=== PATIENT | female | born 1980 | race Caucasian/White ===

== ENCOUNTER → 2023-06-21 12:08 | Outpatient (CLI) | payer OTHER, SELFPAY ==
--- NOTE | 2023-06-21 12:12 | DI.US.S_ITS ---
PROCEDURE: US PELVIC COMPLETE INDICATIONS: dysmenorrhea, irregular cycles, perimenopausal TECHNIQUE: Real-time scanning was performed of the pelvic organs, with image documentation. Additional endovaginal scanning was necessary due to incomplete visualization of the adnexal and endometrial structures by transabdominal scanning. COMPARISON: None. FINDINGS: Uterus: Uterus is anteverted and normal in size at 9.6 x 7.6 x 6.6 cm. The myometrium is homogeneous. The endometrium measures 10.4 mm combined thickness. Focus of heterogeneous echogenicity is present in the mid anterior region measuring 5.5 x 5.5 x 5.3 cm. Ovaries: The right ovary measures 1.9 x 1.7 x 1.4 cm, with a calculated ovarian volume of 2.4 cc. The left ovary measures 2.9 x 2.0 x 1.6 cm, with a calculated ovarian volume of 4.9 cc. The ovaries have a normal sonographic appearance. Less than 12 follicles can be seen in each ovary. No adnexal masses are seen. Other: No pathologic free abdominal or pelvic fluid. IMPRESSION: Focus of uterine heterogeneous echogenicity suggestive of partially degenerating fibroid. We strive to produce accurate, complete, and clear reports of imaging services. To assist us in improving patient care, this report was composed using standard report templates and voice recognition software. Therefore, it may contain abnormal punctuation, insertions and/or omissions. Occasional wrong-word or sound-alike substitutions may occur. Though we review the report and make efforts to correct it, we do recommend that the report be read carefully in proper context to recognize any text inaccuracies. Dictated by: Uma Singh M.D. on 06/21/2023 at 16:29 Approved by: Uma Singh M.D. on 06/21/2023 at 16:30
== END ==
PROVIDERS: PCP Nurse Practitioner Family; Referring Provider Obstetrics & Gynecology; Visit Provider Obstetrics & Gynecology
DX: N94.6 Dysmenorrhea, unspecified (principal); N92.1 Excessive and frequent menstruation with irregular cycle; N95.1 Menopausal and female climacteric states
CPT/HCPCS: 76830; 76856

== ENCOUNTER 2023-08-05 11:01 | Day surgery (SDC) | payer OTHER, SELFPAY ==
[2023-08-04 11:56] VITALS: BMI 22.1
[2023-08-05] VITALS (19 sets, daily range): BP systolic 99–131; BP diastolic 42–78; PULSE 53–96; RESP 12–46; TEMP 36–36.9; O2SAT 96–100; BMI 22.1
--- NOTE | 2023-08-05 | PATH_ITS ---
[facility] Accession Number: [id number] No. of containers..01 Tissue . 01 Material submitted: . uterus - UTERUS, BILATERAL FALLOPIAN TUBES . 01 Diagnosis: UTERUS, BILATERAL FALLOPIAN TUBES, HYSTERECTOMY AND BILATERAL SALPINGECTOMY (PRESERVED OVARIES): Uterine weight: 227 grams. Cervix: Mild chronic cervicitis; negative for dysplasia or malignancy. Endometrium: Proliferative phase endometrium; negative for significant cytologic atypia, hyperplasia, or malignancy. 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 Bilateral fallopian tubes: Benign, without pathologic abnormalities. [facility] 08/12/2023 1639 Local . 01 Comment: Scrap Carrier sections from the leiomyoma reveals cellular-type leiomyoma without significantly increased mitotic activity, atypia or necrosis. There are focal degenerative changes and no histologic features of malignancy. Slides A3 and A7 are reviewed by Dr. Finley who agrees with the findings. . 01 Electronically signed: . Janae Disla MD, Pathologist NPI- [id number] . 01 Gross description: . Received in formalin with two identifiers and uterus, bilateral fallopian tubes, is a mostly intact uterus (227 grams, 9.9 cm from superior to inferior, 7.2 cm from medial to lateral, and 6.5 cm from anterior to posterior) with a partially detached cervix measuring 3.7 x 3.6 cm and two detached, unoriented fallopian tubes (4.5 x 0.6 cm and 3.2 x 0.8 cm) with no additional adnexa. . The ectocervix is pink-boggs, smooth, and glistening with a patulous os measuring 1.0 cm in diameter. The anterior paracervical margin is inked blue while the posterior paracervical margin is inked black. . The serosa is boggs and smooth with a large surgical defect on the right cornu revealing endometrium. The endocervical canal has boggs herringbone mucosa and measures 3.1 cm in length. The endometrial cavity has red, velvety endometrium and measures 3.6 cm from cornu to cornu and 5.2 cm in length. The endometrium averages 0.1 cm thick. The myometrium is boggs with a large, well-circumscribed, soft, cystic nodule, 4.2 x 4.1 x 3.6 cm. No additional lesions are identified. . Both tubes have boggs smooth serosa. The lumens are stellate and unremarkable. Scrap Carrier sections are submitted as follows: . A1: Anterior cervix. A2: Posterior cervix. A3: Composite anterior full thickness section with cystic nodule. A4: Posterior full thickness section. A5: Longer tube to include one-half of bisected fimbriae and cross sections. A6: [place] fallopian tube to include one-half of bisected fimbriae and cross sections ([id number]) . Additional sections of the cystic myometrial nodule are submitted in A7. ([id number]) /MRV 08/12/2023 1639 Local . 01 Pathologist provided ICD-10: D25.0, N92.1, N93.9 . 01 CPT . 051883 Specimen Comment: A courtesy copy of this report has been sent to [phone] Performed at: 01 [facility] [address] [place] [address], [place], [place] [id number] MD Armando Moralez MD Phone: [phone]
[2023-08-05] MEDS: LACTATED RINGERS 1,000 ML 42 ML IV ×2 (11:29→12:50)
[2023-08-05] MEDS: ACETAMINOPHEN 325 MG TABLET 975 MG PO (11:30)
--- NOTE | 2023-08-05 11:59 | PM.PREOP ---
Pre-operative Note COVID-19 COVID-19 status: Not tested Interval Note History & Physical reviewed/Exam performed by Physician: Yes Changes to H&P: No
[2023-08-05] MEDS: CEFAZOLIN 2 GM/100 ML PREMIX 100 ML IV (12:39)
--- NOTE | 2023-08-05 12:58 | SUR.OPER ---
Lithotomy on padded OR bed. [place]il[place] Pad Positioner under torso. Head on pillow, arms padded and tucked at sides. Legs secured in padded yellow fins stirrups.
[2023-08-05] MEDS: BUPIVACAINE 0.25% (PF) 30 ML, EPINEPHrine 0.15 MG INJ (13:03)
[2023-08-05] MEDS: HYDROMORPHONE 1 MG INJ IV ×3 (14:15→16:12)
[2023-08-05] MEDS: hydrOXYzine 50 MG/ML INJ 25 MG IM (14:26)
[2023-08-05] MEDS: HYDROCODONE/ACET 10/325 TABLET 1 TAB PO ×2 (15:33→19:45)
[2023-08-05] MEDS: LACTATED RINGERS 1,000 ML 100 ML IV ×2 (15:34→21:30)
[2023-08-05] MEDS: ACETAMINOPHEN 325 MG TABLET 650 MG PO (17:44)
[2023-08-05] MEDS: KETOROLAC 30 MG/ML VIAL IV (20:38)
[2023-08-05] MEDS: DOCUSATE 100 MG CAPSULE 200 MG PO (20:39)
[2023-08-05] MEDS: ONDANSETRON 4 MG/2 ML INJ IV (20:39)
[2023-08-06 00:24] VITALS: BP 95/46; PULSE 64; RESP 16; TEMP 36.1; O2SAT 98
[2023-08-06 01:15] VITALS: BP 98/65; PULSE 70; RESP 14; O2SAT 96
[2023-08-06] MEDS: ACETAMINOPHEN 325 MG TABLET 650 MG PO (01:34)
[2023-08-06] MEDS: ONDANSETRON 4 MG/2 ML INJ IV (01:34)
[2023-08-06] MEDS: KETOROLAC 30 MG/ML VIAL IV ×2 (02:56→08:07)
[2023-08-06 05:30] VITALS: BP 103/48; PULSE 66; RESP 16; TEMP 36.4; O2SAT 99
[2023-08-06 06:44] LABS: Add Manual Diff / Slide Review NO; Basophils Absolute Auto 0 /uL (0-100); Basophils Percent Auto 0.2 % (0-2); Eosinophils Absolute Auto 0 /uL (0-450); Eosinophils Percent Auto 0.2 % (2-4); Lymphocytes Absolute Auto 1200 /uL (1100-4500); Lymphocytes Percent Auto 16.3 % (25-40); Mean Corpuscular HGB Conc 29.4 % (30-36); Mean Corpuscular Hemoglobin 16.7 PG (26-34); Mean Corpuscular Volume 56.8 fL (80-100); Monocytes Absolute Auto 900 /uL (0-900); Monocytes Percent Auto 11.7 % (3-14); Neutrophils Absolute Auto 5400 /uL (1500-7000); Neutrophils Percent Auto 71.6 % (50-75); Platelet Count 191 X10^3/uL (150-400); Red Cell Distribution Width 18.9 % (11.6-14.8); White Blood Cell Count 7.6 X10^3/uL (4.5-11.0)
[2023-08-06 06:46] LABS: Hematocrit 20.4 % (36-46)
[2023-08-06] MEDS: HYDROMORPHONE 1 MG INJ IV (06:49)
[2023-08-06 07:04] LABS: Platelet Estimate Adequate on smear
[2023-08-06 07:05] LABS: Anisocytosis 2+; Hypochromasia 1+; Microcytosis 3+; Ovalocytes 1+
[2023-08-06 08:00] VITALS: BP 111/61; PULSE 82; RESP 16; TEMP 36.6; O2SAT 99
[2023-08-06] MEDS: DOCUSATE 100 MG CAPSULE 200 MG PO (08:06)
[2023-08-06] MEDS: IRON SUCROSE 300 MG in SODIUM CHLORIDE 0.9% 250 ML 176.667 MG IV (08:54)
[2023-08-06 10:38] LABS: Hemoglobin 6.3 g/dL (12.0-16.0)
[2023-08-06 10:40] LABS: Hematocrit 21.3 % (36-46)
--- NOTE | 2023-08-06 10:45 | PM.DS.1 ---
History of Present Illness History of Present Illness Date Patient Seen: 08/06/23 Time Patient Seen: 10:45 Chief complaint: Lap Total Hysterectomy *OPB* Narrative: Naomi is a 43-year-old , LMP uncertain due to the chaotic nature of her menses, who presents for evaluation of her chaotic menses. Patient experienced menarche at age 14 and has had regular predictable periods throughout her adult life. She conceived, carried, and delivered spontaneously 5 children the largest of which was more than 9 lb at . Since having her last child in about 2015, the patient's periods have become progressively chaotic and much more painful following an interval sterilization performed a year so after she delivered her youngest child. The cramping is severe with severe fitting, overflows, and accidents. The patient over the last few years has do evolved into having chaotic bleeding occurring several times a month with only a few days of amenorrhea in between. Patient's last Pap smear is greater than 5 years ago but she does not all ever having an abnormal. Patient has never had any endometrial sampling. 06/21/2023 which shows: FINDINGS: Uterus: Uterus is anteverted and normal in size at 9.6 x 7.6 x 6.6 cm. The myometrium is homogeneous. The endometrium measures 10.4 mm combined thickness. Focus of heterogeneous echogenicity is present in the mid anterior region measuring 5.5 x 5.5 x 5.3 cm. Ovaries: The right ovary measures 1.9 x 1.7 x 1.4 cm, with a calculated ovarian volume of 2.4 cc. The left ovary measures 2.9 x 2.0 x 1.6 cm, with a calculated ovarian volume of 4.9 cc. The ovaries have a normal sonographic appearance. Less than 12 follicles can be seen in each ovary. No adnexal masses are seen. Other: No pathologic free abdominal or pelvic fluid. IMPRESSION: Focus of uterine heterogeneous echogenicity suggestive of partially degenerating fibroid. Due to the vague nature of the myometrial abnormality noted on ultrasound, the films were reviewed and indeed she has a 5-1/2 x 5-1/2 cm mass within the substance of the myometrium is markedly heterogenous in echogenicity. A degenerating myoma is a possibility as is the possibility of an adenomyoma. ROS is positive for BRIANA. Pap smear obtained and submitted. Endometrial biopsy also performed and both reported normal. The nature of the patient's uterine mass is unclear. Although described as a possible ?degenerating myoma?, it could also be an adenomyoma or some other myometrial lesion. Either way, the pelvic exam duplicates her pain and very likely the uterine mass is playing a role not only in her pain symptoms but also her intractable menometrorrhagia. After discussion of all options for further evaluation/treatment, I have recommended to her that she consider hysterectomy with bilateral salpingectomy and preservation of both ovaries as hysterectomy is the only means of definitively resolving her menometrorrhagia and making a diagnosis as to the nature of her uterine mass. After consideration of all options, the patient has decided to move forward with total laparoscopic hysterectomy and bilateral salpingectomy. She presents for her scheduled surgery. Discharge Providers Provider Date of admission: 08/05/2023 Discharge Date: 08/06/23 Primary care physician: Tish Montague RN Discharge provider: Arvin Hernandez MD Summary Hospital Course Discharge Diagnosis: Menorrhagia Myometrial mass Pelvic pain Status post total laparoscopic hysterectomy with removal of fallopian tube remnants, bilateral Chronic iron deficiency anemia Hospital Course: On 08/05/2023, the patient was admitted and underwent an uneventful total laparoscopic hysterectomy with removal of bilateral fallopian tube remnants. Full details of the procedure well summarized on my operative note of that date. Following surgery the patient has done extremely well with prompt return of bowel and bladder function, she is ambulating independently, tolerating regular diet, and her pain is well relieved with oral pain medications. She will be discharged at this time to home in an afebrile normotensive condition after counseling regarding precautionary symptoms, limitations of activity, medications, and plans for follow-up which will be in 2 weeks. Medications at discharge will include resumption of all preadmission medications, including [place] 7.5/325, and Cipro 500 mg p.o. b.i.d. x5 days for UTI prophylaxis following catheterization. The patient will use [id number] Tylenol and/ or ibuprofen as needed for pain relief, add mkvy-goh-arkqqqt iron and vitamin-C daily for the next 2 months, and increase the amount of iron rich foods in her diet. Status at Discharge Cognitive/behavioral status at discharge: oriented Functional status at discharge: independent ambulation Overall status at discharge: patient is progressing back to baseline Time Spent with Patient Time spent: Less than 30 minutes Exam Vital Signs (past 8 hours): - 08/06/23 05:30 08/06/23 08:00 Temperature 97.5 F L 97.8 F Pulse Rate 66 82 Respiratory Rate 16 16 Blood Pressure 103/48 L 111/61 Pulse Oximetry 99 99 Oxygen Delivery Method Room Air Oxygen Flow Rate 0 Const General: cooperative and comfortable Nutritional Appearance: average body habitus Orientation: alert and oriented x3 HENMT Head: normal to inspection, atraumatic and abrasion Ears: hearing grossly normal bilaterally Face and sinus: face symmetric Eyes General: appearance normal, both eyes and all related structures Conjunctivae: conjunctivae normal Sclera: sclerae normal EOM: EOM intact bilaterally Neck Neck: normal visual inspection Resp Effort & Inspection: normal respiratory effort and able to speak in complete sentences Auscultation: clear to auscultation bilaterally Cardio Rate: regular rate Rhythm: regular rhythm Heart Sounds: S1 normal, S2 normal and no murmurs GI Inspection: normal to inspection and incision (Surgical dressings clean and dry) Palpation: soft, no hepatosplenomegaly and tender (Mild, diffuse postsurgical tenderness) External Female Exam: other (No significant bleeding noted) Extrem General: no calf tenderness Psych Appearance: grossly normal Mental Status: mental status grossly normal Speech and Movement: speech and movement normal Mood: congruent mood Affect: normal affect Attitude: cooperative Thought Process: normal Thought Content: normal Judgment: judgment good Objective Labs 08/06/23 10:05 Labs: Laboratory Results - last 24 hr 08/06/23 08/06/23 06:15 10:05 WBC 7.6 RBC 3.60 L Hgb 6.0 L* 6.3 L* Hct 20.4 L* 21.3 L MCV 56.8 L MCH 16.7 L MCHC 29.4 L RDW 18.9 H Plt Count 191 Neut % (Auto) 71.6 Lymph % (Auto) 16.3 L [place] % (Auto) 11.7 Eos % (Auto) 0.2 L Baso % (Auto) 0.2 Neut # (Auto) 5400 Lymph # (Auto) 1200 [place] # (Auto) 900 Eos # (Auto) 0 Baso # (Auto) 0 Platelet Estimate Adequate on smear RBC Morphology See below Hypochromasia 1+ H Anisocytosis 2+ H Microcytosis 3+ H Ovalocytes 1+ H PFSH Medical History (Updated 08/04/23 @ 12:04 by Ilene Parada RN) Mastodynia ADHD Depression Anxiety Surgical History (Updated 08/04/23 @ 12:04 by Ilene Parada RN) History of bilateral breast implants Social History household members: spouse and children Smoking Status: Current every day smoker alcohol intake: current Discharge Assessment & Plan Assessment and Plan Assessment: Myometrial mass Pelvic pain Status post total laparoscopic hysterectomy with removal of fallopian tube remnants, bilateral Chronic iron deficiency anemia Plan of Treatment: Routine postoperative care with follow-up planned for 2 weeks postop or as needed Discharge Plan Discharge Plan Patient Disposition: Home Provider Discharge Comment: Please review the written instructions you received when you were discharged from the hospital. Your follow-up visit will be scheduled for 2 weeks after your surgery and I look forward to seeing you then. If however in the meanwhile you have any issues, concerns, or questions, please contact the office either by phone at [phone], or via the patient portal. Discharge orders & Medications Discharge Orders: Discharge (Order); Ordered 08/06/23 Ordered By: Arvin Hernandez Prescriptions: New ciprofloxacin HCl [Cipro] 500 mg tablet 500 mg PO BID 5 Days Qty: 10 0RF Continued dextroamphetamine-amphetamine [Adderall] 10 mg tablet 10 mg PO DAILY hydrocodone-acetaminophen 7.5-325 mg tablet 1 tab PO Q4-6H PRN (Reason: pain) Qty: 20 0RF trazodone 50 mg tablet 50 - 100 mg PO ONCE PM Follow up/Referrals: Arvin Hernandez MD [Physician] - Tish Montague RN [Primary Care Provider] - Diet/Activity/Treatments Diet: Diet as Tolerated Activity: As tolerated Catheter: 2-way Willis Other treatments: Sang-rnf-ogsbhsb Tylenol and/or ibuprofen may be used for additional pain relief. Pruj-hvg-ottdbqf stool softeners and/or MiraLax may be used as needed for constipation. You will also need to take an over the counter iron tablet along with a vitamin C tablet daily for the next couple of months. Skin/Wound/Dressing Care Report to your healthcare provider any signs of infection, such as:: chills, fever, increased pain, unusual drainage and unusual redness Dressing: Dressings should be removed on the morning of 08/07/2023 Visit Report/Discharge Packet Instructions: DI for Hysterectomy, DI for Laparoscopy, DI for Prescription Opioid Use Stand Alone Forms: Surgery Discharge Print Language: Tajik Discharge Data Primary Care Provider: Tish Montague Attending Provider: Arvin Hernandez VTE Deep Vein Thrombosis/Pulmonary Embolism Present on Admission: No
--- NOTE | 2023-08-06 13:08 | P.OP_ITS ---
Operative Date/Time/Diagnoses Date of procedure: 08/06/23 Time of procedure: 12:30 Pre-op diagnosis: Menorrhagia Myometrial mass Pelvic pain Post-op diagnosis: same Procedure & Clinicians Procedure: Procedures Operation Date: 08/05/23 12:15 Actual Procedure Side Surgeon p Laparoscopic Total Hysterectomy with bilateral salpingectomy Arvin Hernandez MD Indications: Naomi is a 43-year-old , LMP uncertain due to the chaotic nature of her menses, who presents for evaluation of her chaotic menses. Patient experienced menarche at age 14 and has had regular predictable periods throughout her adult life. She conceived, carried, and delivered spontaneously 5 children the largest of which was more than 9 lb at . Since having her last child in about 2015, the patient's periods have become progressively chaotic and much more painful following an interval sterilization performed a year so after she delivered her youngest child. The cramping is severe with severe fitting, overflows, and accidents. The patient over the last few years has do evolved into having chaotic bleeding occurring several times a month with only a few days of amenorrhea in between. Patient's last Pap smear is greater than 5 years ago but she does not all ever having an abnormal. Patient has neve r had any endometrial sampling. 06/21/2023 which shows: FINDINGS: Uterus: Uterus is anteverted and normal in size at 9.6 x 7.6 x 6.6 cm. The myometrium is homogeneous. The endometrium measures 10.4 mm combined thickness. Focus of heterogeneous echogenicity is present in the mid anterior region measuring 5.5 x 5.5 x 5.3 cm. Ovaries: The right ovary measures 1.9 x 1.7 x 1.4 cm, with a calculated ovarian volume of 2.4 cc. The left ovary measures 2.9 x 2.0 x 1.6 cm, with a calculated ovarian volume of 4.9 cc. The ovaries have a normal sonographic appearance. Less than 12 follicles can be seen in each ovary. No adnexal masses are seen. Other: No pathologic free abdominal or pelvic fluid. IMPRESSION: Focus of uterine heterogeneous echogenicity suggestive of partially degenerating fibroid. Due to the vague nature of the myometrial abnormality noted on ultrasound, the films were reviewed and indeed she has a 5-1/2 x 5-1/2 cm mass within the substance of the myometrium is markedly heterogenous in echogenicity. A degenerating myoma is a possibility as is the possibility of an adenomyoma. ROS is positive for BRIANA. Pap smear obtained and submitted. Endometrial biopsy also performed and both reported normal. The nature of the patient's uterine mass is unclear. Although described as a possible ?degenerating myoma?, it could also be an adenomyoma or some other myometrial lesion. Either way, the pelvic exam duplicates her pain and very likely the uterine mass is playing a role not only in her pain symptoms but also her intractable menometrorrhagia. After discussion of all options for further evaluation/treatment, I have recommended to her that she consider hysterectomy with bilateral salpingectomy and preservation of both ovaries as hysterectomy is the only means of definitively resolving her menometrorrhagia and making a diagnosis as to the nature of her uterine mass. After consideration of all options, the patient has decided to move forward with total laparoscopic hysterectomy and bilateral salpingectomy with performance of mid urethral sling and cystoscopy. She presents today for her scheduled surgery. Surgeon: Arvin Hernandez Pneudraulic Systems Mechanic: Kenia Strauss Anesthesia Type: General Operative Notes Findings: The uterus is enlarged to approximately 8 weeks due to an anterior myometrial mass consistent with a degenerating uterine fibroid. Adnexa demonstrates tyler ges consistent with prior partial salpingectomy. Both ovaries appeared to be normal. There was no scarring or other abnormalities in either the anterior or posterior cul-de-sac. The remainder of the abdomen and pelvis were normal laparoscopic inspection. Closure Type: primary Specimen(s): portion of left tube, portion of right tube and uterus Applied: catheter Estimated blood loss (mL): 175 Blood products transfused: none Procedure in detail: With the patient in modified dorsal lithotomy position preparations were made by prepping and draping the patient in usual manner for vaginal surgery and insertion of Willis catheter. A pre-surgical time-out was then taken in accordance with [facility] Main OR policy. A bivalve speculum was then placed in the vagina and the cervix visualized. The anterior lip of the cervix was then grasped with a single-tooth tenaculum. The uterus was sounded to 9 cm, the endocervical canal dilated slightly, and a [place] uterine manipulator with a medium colpotomy cup was placed. The umbilicus was then infiltrated with 0.5% Marcaine with epinephrine. A 1 cm umbilical incision was made transversely and a Veress needle was used to insufflate the abdominal cavity with carbon dioxide. Once the abdomen was appropriately insufflated, a 5 mm trocar and sleeve were then placed through the umbilical incision. The scope was placed through the trocar and the initial assessment of the intra-abdominal contents carried out. A 2nd and 3rd 5 mm port was then placed 1st in the right mid quadrant from then the left mid quadrant by infiltration of the skin and subcutaneous tissues, a 1 cm transverse incision and insertion of the 5 mm bladeless port. Using a 3 puncture technique, the abdomen and pelvis were inspected laparoscopy. The adhesions involving the aspect uterine fundus and lower uterine segment were taken down with sharp and blunt dissection. Uterus is mobilized with the [place] manipulator and attention turned to the left adnexa. The distal tube was then grasped and the fimbria ovarica divided after coagulation with the PowerSeal device. The dissection was then carried out across the mesosalpinx and the distal tubal remnant was removed through 1 of the laparoscopy ports. The dissection was then carried down using the PowerSeal device so as to divide the utero-ovarian ligament and the round ligament with blunt and sharp dissection of the broad down to the level of the uterine artery. The uterine artery was then skeletonized after development of a bladder flap, coagulated, and divided. Once hemostasis was assured on the left side attention was turned to the right and the tube, utero-ovarian ligament, round ligament, and broad ligament were dissected in a fashion exactly the same as it had been on the left. The right uterine artery was then visualized after skeletonization and coagulated and divided. The uterus was seen to ly after coagulation of both your arteries and the cup was identified through the vaginal muscularis at its insertion with the body of the cervix. Circumferential excision of the vaginal cup was accomplished without difficulty using monopolar current and the uterus mobilized. The uterus was then removed through the vagina and the vaginal cuff closed [id number] with a series of 0 Vicryl rtzdnr-um-vnytk stitches. Hemostasis was excellent, the abdomen was re-insufflated, and the pelvis inspected laparoscopically. The pelvis was inspected for any abnormality or bleeding, and the ureters were each seen to be peristalsing freely. With complete hemostasis assured, the pneumoperitoneum was vented and the ports removed. All of the 5 mm ports were then closed with 4-0 Monocryl on the skin using inverted interrupted sutures. Skin glue was placed and after the glue was dried, an appropriate dressing was applied. The case was then terminated, the patient awakened, and then transferred to PACU after having tolerated the procedure well. Complications: none Post-operative Condition: stable Disposition: PACU Plan for aftercare: Routine post-op care with plans for follow-up in 2 weeks or as needed.
--- NOTE | 2023-08-06 14:15 | CM.DANOTE ---
Initial DCP Assessment Visit Note Reviewed EMR and team rounds for status updates. GRADING SUPERVISOR was unable to meet with pt f/f before she discharged earlier today. No identified d/c plans were identified for assistance during this admission. Her transported her home at d/c. Payor: Elliott YBARRA Attending: Dr. Hernandez Pt is a 43 year-old F with a long hx of difficult menstrual cycles that often are excessive and painful in nature. Imaging done by OBGYN was positive for a non-malignant mass, which was evaluated to be a major factor in the chaotic nature of her periods. Total hysterectomy with bilateral salpingectomy and preservation of her ovaries was completed yesterday, she has done well postoperatively and was medically cleared for d/c home with her spouse. She will f/u for postop wound check with Dr. Hernandez. Discharge Planning/Care Management CM Discharge Assessment Start: 08/06/23 14:13 Freq: Status: Active Protocol: Document 08/06/23 14:13 DPL (Rec: 08/06/23 14:15 DPL [id number]) Discharge Planning Assessment Assigned Chief Lock Tender Operator CHARLA Naik Advance Directives? No History Provided By Medical Record Has Patient been admitted in last 30 No days? Prior Living Arrangements House Household Members spouse,children Type of transporation used prior to Drives own vehicle admit Independent with ADL's Yes Is patient alert and oriented? Yes Caregiver for Another Yes: children Comment No home d/c needs identified at this time. Barriers to Discharge No Discharge Plan Home Transportation Arrangement Spouse Referrals Initiated None needed Review Status In Process Please Provide Date Initial DC 08/06/23 Assessment Was Performed Pre-Anesthesia Assessment Start: 08/04/23 11:56 Freq: Status: Discharge Protocol: Document 08/04/23 11:56 CAB (Rec: 08/04/23 12:06 CAB [id number]) Pre-Anesthesia Assessment Patient Information Reviewed Via Chart Review Primary Care Provider Tish Montague Seen Specialist in Last 12 Months Yes Specialist Seen Multiple Needle Stitcher Primary Language [place]se Extractor Machine Operator Required No Height 172.72 cm Weight 66.224 kg Body Mass Index (BMI) 22.1 Barriers to Learning None Anesthesia Review Requested No Otr Owner Operator No alcohol intake current Smoking Status Current every day smoker History of Falling (Recent or History of No ) Patient is completely paralyzed or No completely immobile Mental Status Oriented to own ability Is patient on oxygen? No Hx Sleep Apnea No Currently Taking a Beta Sherri No Anti-Coagulant Therapy No Has a Restaurant Area Director No Cardiac Testing No Hx Pacemaker/ICD No Pacemaker Rep Required? No Cardiac Clearance Received No Urinary Catheter Present No Hx Urinary Self Catheterization No Diabetes No Patient No Lactating No Marital Status Lives With spouse,children Patient Discharge Plan Description Return Home
== END 2023-08-06 11:00 | disposition home or self-care (01) ==
LOC: OR 11:02 → AC 11:02
PROVIDERS: PCP Nurse Practitioner Family; Referring Provider Obstetrics & Gynecology; Visit Provider Obstetrics & Gynecology
PROC: 0UT94ZZ Resection of Uterus, Percutaneous Endoscopic Approach (ICD-10-PCS; CPT 58571; principal; 2023-08-05 12:15)
DX: N92.1 Excessive and frequent menstruation with irregular cycle (principal); R93.89 Abnormal findings on diagnostic imaging of other specified body structures; N39.3 Stress incontinence (female) (male); N73.6 Female pelvic peritoneal adhesions (postinfective); N72 Inflammatory disease of cervix uteri; D25.9 Leiomyoma of uterus, unspecified
CPT/HCPCS: 58571; 36415; 85014; 85018; 85025; J0171; J0690; J1100; J1170; J1756; J1885; J2250; J2405; J2704; J3010; J3410

== ENCOUNTER 2023-10-13 00:08 | Emergency (ER) | payer OTHER, SELFPAY ==
[2023-08-05 15:35] VITALS: BMI 22.1
[2023-10-13 00:10] VITALS: BP 126/75; PULSE 88; RESP 16; TEMP 36.8; O2SAT 99; BMI 21.7
--- NOTE | 2023-10-13 00:20 | ED_ITS ---
HPI - Psych <Silke Junior DO - Last Filed: 10/14/23 02:22> General Chief Complaint: Psychiatric Symptoms Stated Complaint: YASMIN-SI Time Seen by Provider: 10/13/23 00:13 Source: patient, RN notes reviewed and old records reviewed Mode of arrival: other (law enforcement) Limitations: no limitations History of Present Illness HPI Narrative: 43-year-old female who presents with law enforcement for suicidal ideation and was found at [place] with a plan to jump into the water. Patient had been texting her brother who contacted the patient's told them to check on her because she was not okay. [place]. Patient did express thoughts of killing herself to law enforcement. She was initially resistant to coming for assistance. Patient had to be handcuffed to be transported. She states that she does not want to talk to me. She has not willing to answer questions. She does not wish to be here and would like to leave. She did admit to using alcohol with law enforcement earlier in the evening. She states she did have some alcohol this evening but that does not have anything to do with what is going on tonight. She does not answer any questions about alcohol or drug use to myself. Did discuss with the patient would be helpful to obtain blood in urine for medical clearance. At this time she is not allowed to leave as she has clearly expressed suicidal ideation with a plan and near attempt. Related Data Home Medications Medication Instructions Recorded Confirmed dextroamphetamine-amphetamine 10 10 mg PO DAILY 06/23/23 08/05/23 mg tablet (Adderall) trazodone 50 mg tablet 50 - 100 mg PO ONCE PM 08/05/23 08/05/23 Previous Rx's Medication Instructions Recorded hydrocodone 7.5 mg-acetaminophen 1 tab PO Q4-6H PRN pain #20 tabs 08/04/23 325 mg tablet Allergies Allergy/AdvReac Type Severity Reaction Status Date / Time codeine Allergy Intermediate Hallucinati Verified 08/04/23 10:16 ng Review of Systems <Silke Junior DO - Last Filed: 10/14/23 02:22> Review of Systems ROS Unobtainable: Other (pt refused to answer.) Patient History <Silke Junior DO - Last Filed: 10/14/23 02:22> Medical History Mastodynia ADHD Depression Anxiety Surgical History History of bilateral breast implants Social History household members: spouse and children Smoking Status: Current every day smoker alcohol intake: current Smoking Status: Current every day smoker alcohol intake frequency: holidays/special occasions only Substance Use Type: does not use Exam <Silke Junior DO - Last Filed: 10/14/23 02:22> Narrative Exam Narrative: GENERAL: Alert and oriented x three, female in moderate distress. Patient is cooperative with physical exam but will not answer verbal questions. HEENT: Head normocephalic, atraumatic, EOMI, pupils reactive, face symmetric, moist mucous membranes NECK: Supple, full range of motion CARDIOVASCULAR: Regular rate and rhythm without murmurs, rubs or gallops. RESPIRATORY: Breath sounds equal bilaterally, no wheezes rales or rhonchi. ABDOMEN: Soft, nontender. Normoactive bowel sounds all 4 quadrants. No guarding or rebound, rigidity, no mass : No CVA tenderness EXTREMITIES: Normal range of motion, no clubbing or edema. Neurovascularly intact NEUROLOGICAL: Cranial nerves II through XII grossly intact. Moving all extremities SKIN: Warm, dry, no petechiae, no rashes or lesions. PSYCH: Refuses to answer questions to myself. Did answer questions positive for SI with intent to law enforcement earlier. Initial Vital Signs Initial Vital Signs: Vital Signs Temperature 98.3 F 10/13/23 00:10 Pulse Rate 88 10/13/23 00:10 Respiratory Rate 16 10/13/23 00:10 Blood Pressure 126/75 10/13/23 00:10 Pulse Oximetry 99 10/13/23 00:10 Oxygen Delivery Method Room Air 10/13/23 00:10 <Leidy Harvey DO - Last Filed: 10/13/23 14:45> Initial Vital Signs Initial Vital Signs: Vital Signs Temperature 98.3 F 10/13/23 00:10 Pulse Rate 88 10/13/23 00:10 Respiratory Rate 16 10/13/23 00:10 Blood Pressure 126/75 10/13/23 00:10 Pulse Oximetry 99 10/13/23 00:10 Oxygen Delivery Method Room Air 10/13/23 00:10 Course <Silke Junior DO - Last Filed: 10/14/23 02:22> Orders Ordered: ED Orders 10/13/23 00:19 Consult to [facility] [place] Control Clerk Blood Bank Stat Acetaminophen Stat Complete Blood Count AUTO DIFF Stat Comprehensive Metabolic Panel Stat Ethanol (ETOH) Stat Salicylate Stat TSH w/ Reflex to FT4 Stat Urine Drug Screen, Rapid Stat Vital Signs Vital signs: Vital Signs - 8 hr 10/13/23 06:35 Pulse Rate 74 Respiratory Rate 12 Blood Pressure 102/57 L Pulse Oximetry 97 Oxygen Delivery Method Room Air <Leidy Harvey DO - Last Filed: 10/13/23 14:45> Orders Ordered: ED Orders 10/13/23 00:19 Consult to [facility] [place] Calendar Control Clerk Blood Bank Stat Acetaminophen Stat Complete Blood Count AUTO DIFF Stat Comprehensive Metabolic Panel Stat Ethanol (ETOH) Stat Salicylate Stat TSH w/ Reflex to FT4 Stat Urine Drug Screen, Rapid Stat Vital Signs Vital signs: Vital Signs - 8 hr 10/13/23 06:35 Pulse Rate 74 Respiratory Rate 12 Blood Pressure 102/57 L Pulse Oximetry 97 Oxygen Delivery Method Room Air MDM - Psych <Silke Junior DO - Last Filed: 10/14/23 02:22> MDM Narrative Medical decision making narrative: Patient has refused blood and urine. Does not appear intoxicated. Discussed at length that is required for medical clearance. You can meet with the dialysis social worker but are not medically cleared we will not be discharged. This point I would dispatched DCR but do not have a appropriate labs and urine to dispatch. Patient's did arrive later he states that patient never said any of these things, discussed that law enforcement did show me the text messages that were sent which are quite concerning. They also filled out there YASMIN paperwork which is with patients chart. Patients was asked to leave the department. Patient signed out to Dr. Harvey for re-evaluation. Patient was clearly intoxicated last night could not so could not dispatched DCR at that point. Plan for re-evaluation patient is intoxicated and plan to meet with the ETCHED CIRCUIT PROCESSOR. Patient is agreeable to meet but continues to be not amenable to giving blood or urine. 07:55am Dr. Harvey-patient signed out to me by Dr. Junior I have seen evaluated patient myself. She is tearful she remembers that she made suicidal threats last night. She reports that she was sad she is still sad but no longer suicidal. Sys she needs phone to call work and has kids to take care of. She reports that she had suicidal thoughts about 15 years ago she has never been a mental health hospital. She never consented to blood or urine, continues to refuse. There was significant concern last night for DCR and making her involuntary. At this time I strongly encouraged her to wait for social work not sure that she is involuntary at this time. H yasmin from replace state that she texted her brother and her has been seeing ?it is the end of the road for me? and ?no one is here to start me ?patient was on the dock trying to jump off into the [place] has been was physically keeping her from jumping off the dock. She also told officers it was her choice to end her life NSAID officers could not stop her. She continues to refuse blood in urine but does ultimately agree to wait for social work for resources. She does not want to go to mental health facility saying that she does not need it. She says that antidepressants do not work for her. She reports that she does not normally drink alcohol but she had 4 beers and some whiskey last night which is atypical for her. Patient continues to deny suicidal ideations this morning. She did agree and waited for social work. She was given breakfast and her phone. Social work low-grade but she is no longer suicidal and she can contract for safety. She does not meet involuntary criteria. Patient is discharged in given resources. <Leidy Harvey, DO - Last Filed: 10/13/23 14:45> [facility] Narrative Medical decision making narrative: Patient has refused blood and urine. Discussed at length that is required for medical clearance. You can meet with the dialysis social worker but are not medically cleared we will not be discharged. This point I would dispatched DCR but do not have a appropriate labs and urine to dispatch. Patient's did arrive later he states that patient never said any of these things, discussed that law enforcement did show me the text messages that were sent which are quite concerning. They also filled out there YASMIN paperwork which is with patients chart. Patients was asked to leave the department. 07:55am Dr. Harvey-patient signed out to me by Dr. Junior I have seen evaluated patient myself. She is tearful she remembers that she made suicidal threats last night. She reports that she was sad she is still sad but no longer suicidal. Sys she needs phone to call work and has kids to take care of. She reports that she had suicidal thoughts about 15 years ago she has never been a mental health hospital. She never consented to blood or urine, continues to refuse. There was significant concern last night for DCR and making her involuntary. At this time I strongly encouraged her to wait for social work not sure that she is involuntary at this time. H yasmin from replace state that she texted her brother and her has been seeing ?it is the end of the road for me? a nd ?no one is here to start me ?patient was on the dock trying to jump off [place] the [place] has been was physically keeping her from jumping off the dock. She also told officers it was her choice to end her life NSAID officers could not stop her. She continues to refuse blood in urine but does ultimately agree to wait for social work for resources. She does not want to go to mental health facility saying that she does not need it. She says that antidepressants do not work for her. She reports that she does not normally drink alcohol but she had 4 beers and some whiskey last night which is atypical for her. Patient continues to deny suicidal ideations this morning. She did agree and waited for social work. She was given breakfast and her phone. Social work low-grade but she is no longer suicidal and she can contract for safety. She does not meet involuntary criteria. Patient is discharged in given resources. Discharge Plan Departure Patient Disposition: Home Clinical Impression: Suicidal behavior, Alcohol intoxication Instructions: DI for Suicidal Ideation-Adult Activity Restrictions/Additional Instructions: *You have been diagnosed with suicidal ideation *What to do: If you are feeling suicidal or having suicidal thoughts: Call: Suicide Hotline: 947 Visit: www.[employer] Text: 562765 *Continue to take medications as directed *Follow up with your primary care provider in 2-3 days or call [phone] *Return to ER if you should have increasing thoughts of harming self or any new, worsening or concerning symptoms Prescriptions: No Action dextroamphetamine-amphetamine [Adderall] 10 mg tablet 10 mg PO DAILY hydrocodone-acetaminophen 7.5-325 mg tablet 1 tab PO Q4-6H PRN (Reason: pain) Qty: 20 0RF trazodone 50 mg tablet 50 - 100 mg PO ONCE PM Referrals: Tish Montague ARNP, RN [Primary Care Provider] - Stand Alone Forms: Patient Portal/API
--- NOTE | 2023-10-13 00:43 | PC.NURSE ---
This Tech asked Pt if she could provide a urine sample and if she would allow a blood draw. Pt stated absolutely not am I under arrest? Tech mention that it would help to move the process along if we had those specimens. Pt states its a hospital and everything is fucking slow here so no I wont provide a sample and I would like my phone. Tech acknowledged request for phone and informed Pt that she cannnot have it a this time
--- NOTE | 2023-10-13 00:53 | PC.NURSE ---
Pt has been asking for her cell phone I informed her per charge master specialist that she could possibly get her phone back if she allows us to get a blood draw and urine sample. She then stated that she was going to leave and attempted to exit the department. Other tech came by and helped me redirect her back into the room.
--- NOTE | 2023-10-13 01:21 | PC.NURSE ---
Addendum entered by Joaquina Kramer R.N. 10/13/23 04:55: note continued: he had stated he had been holding on to her, when the apd had arrived and that she had thrown her shoes into the water. I started to explain the process to spouse and about potential involuntary hold. Spouse started to get defensive and state, shes not suicidal, he tried to change the meaning of her words to apd. During this discussion with the spouse, pt hadn't wanted to see spouse. Sortly after she was told she couldn't have her phone to, she said she just wanted to talk to her , once again pt was asked if she wanted back and she said yes. Once spouse back in the room, he started becoming passive aggressive towards staff, stating that nurse said the doctor would be right in. He had been told the doctor would be in as soon as she was available. pt and spouse trying to play staff off each other. At 0330 spouse was asked to leave, to help allow patient to sleep, pt blaming staff were the ones keeping her awake versus her . pt had been blaming sitter mostly. Changed sitter, pt laying quietly in bed at this time. Original Note: Talked to spouse upon his arrival separate from patient. Spouse reports increasing marital issues, Spouse states had been out drinking with pt imani and then left her at [facility]. Spouse reported he had reached out to patient's brother to talk to her, he states he then received a call back that he need to go to her and that she was in a bad way. Spouse had gone back to [facility] but couldn't find her. [place], informed apd where patient was,
--- NOTE | 2023-10-13 01:25 | PC.NURSE ---
pt has been explained to in length the steps that need to be taken in order to get her medically cleared, provider has now re-explained to pt with in the room.
--- NOTE | 2023-10-13 01:34 | PC.NURSE ---
text messages to spouse
--- NOTE | 2023-10-13 01:44 | PC.NURSE ---
Pt refusing to give urine and blood draw, since arrival.
--- NOTE | 2023-10-13 02:50 | PC.NURSE ---
pt's was standing at the door asking me to tell the nurses to be more respectful that it is 0230 in the morning. I informed him that they are employees talking at the nurses station. Pt started to scream shut up from her room.
--- NOTE | 2023-10-13 04:00 | PC.NURSE ---
Pt requested door to room be partially closed due to noise in dept. Tech acknowledged request. Pt offered extra blanket and pillow Pt declined at this time
--- NOTE | 2023-10-13 06:28 | PC.NURSE ---
Tech offered pt warm blankets pt accepted. Tech asked pt again if she would be willing to provide blood and urine sample, pt declined. RN aware
[2023-10-13 06:35] VITALS: BP 102/57; PULSE 74; RESP 12; O2SAT 97
--- NOTE | 2023-10-13 07:17 | PC.NURSE ---
Addendum entered by Johnson Rausch 10/13/23 07:31: remains at bedside, pt. no longer crying and is sitting up talking with calmly. Original Note: ROLLER MACHINE OPERATOR note: at bedside talking with pt.
--- NOTE | 2023-10-13 10:08 | PC.NURSE ---
Late Entry, At 0715 Myself and another RN updated pt's in the waiting room and brought him back to the room to see pt. Both pt and appear calm while in room together. Pt still refusing blood work and urine, Dr. Harvey aware and okay'd. When talking with the pt, I asked how she is feel today, she reports Sad RN asked pt to explain more and she states I just want to go home I then asked if she wants to kill herself, pt states No, I never wanted to kill myself, I just feel sad and I want to go home Continuing to monitor pt for any suicidal ideation/changes. 1:1 Sitter present at bedside. Pt agreeable to meet with mental health social worker at 1100.
--- NOTE | 2023-10-13 12:04 | PC.NURSE ---
pt. spoke with ADMINISTRATIVE SALES ASSISTANT, belongings were returned to pt. to get personal clothing on and ready to be discharged by facility.
--- NOTE | 2023-10-13 12:45 | CM.SWNOTE ---
ED HEALTH CARE ATTORNEY Assessment HEALTH CARE ATTORNEY - Internet Marketing Assistant Assessment HEALTH CARE ATTORNEY/Internet Marketing Assistant Assessment Time Spent with Patient Start date 10/13/23 Visit Start Time 11:20 End date 10/13/23 Visit End Time 11:40 Total time Care Management spent on 20 minutes patient visit-in minutes Mental Health Screening Include Onset, Duration, Intensity Presenting Problem Patient presents to ED via LE last night after patient sent a suicidal text to her brother and saying this is the end of the road and making threats to jump into the water. Patient had to be brought into the ED in handcuffs as patient did not want to present to the ED. Precipitating Event(s) Patient states she did not eat yesterday, and states she drank 3 beers, 2 whiskey drinks and 1 mixed rum drink and became intoxicated. Patient states she has been very sad and depressed lately but denies any intent, plans or history of suicidal ideation. Patient states I didn't want to kill myself, I just wanted someone to hear me Patient states she texted this is the end of the road because she was at the end of a road and patient shows picture she texted of the end of a road. Patient states she was [place] the water access [place] because she wanted to go swimming or put her feet in the water. Patient states that when her found out where she was and received the texts he called 911 and when LE arrived patient states she felt threatened, and threatened to jump in the water. Patient states she has been tired lately, and has been working 6 out of 7 days a week . Patient states her depression and ebbed an flowed and depression medications do not work for her. Patient states she felt like she was allowed to be sad and believes that there was a miscommunication in her statements. Patient states that her brother lives in [place] and he is not aware that patient has been sad or stressed, patient states she believes her statements were misinterpreted. Patient states she had a hysterectomy a few months ago and her hormones and emotions have been out of balance. Patient Strengths Patient has support from spouse, patient has psychiatrist. Current Behavioral Health Provider(s) Patient states she is seen by Include Facility, Provider, Ph. # [facility] and is prescribed medication for sleep and ADHD (ph. # [phone]) Psych. Hx Mental Health and Chemical Patient has hx of ADHD, Dependency Anxiety and Depression Patient endorses occasional weekly ETOH use and social marijuana use and denies any other substance use. Family Hx of Behavioral Abuse None reported Psychiatric Hospitalizations (date(s)/ No hx location) Psychosocial information & Support Patient is 43 y/o female who Systems resides with two teenage sons and spouse in [place], [place]. Patient endorses support from family. 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 Legal Concerns Legal Matters - Outstanding Issues None reported Mental Status Orientation (Person/Place/Time) A/Ox4 Stated Mood I was really sad Affect (Congruent with Mood?) euthymic, full range, congruent with mood. Thought Content - Specify/Describe Patient denies hx of visual or Obsessions, Delusions, Hallucinations auditory hallucinations. Thought Processes (Zxfbzxx-Eqaezirk-Tkzr coherent, goal oriented, Eorrsten-Oiborjkt-Ovtfbveiog- logical Misutmplfvgkau-Brovimt-Kqwwbsjbkwpz- Thought Blocking) Speech (Scolyq-Qfup-Ynorrzy-Rapid-Soft- normal Loud-Pressured) Motor (Vxazzk-Xcfaxytff-Unki-Other) normal Insight (Mgrq-Mwin-Newi/Limited) fair Judgement (Kcsq-Hkdz-Bfli/Limited) fair Impulse Control (Adequate-Impaired) adequate Memory (Ndthfxlfz-Wnywbp-Vrzdgm, intact, not formally assessed Impaired-Intact) Concentration (Intact-Impaired) intact Attention (Intact-Impaired) intact Behavior (Appropriate-Inappropriate) appropriate Additional Comment patient presents as calm, cooperative and communicative. Patient states she refused a blood draw for lab work because she was told she was anemic and patient did not feel comfortable providing a blood sample. Risk Assessment Suicidal Ideation (Plan) No Homicidal Ideation (Plan) No Intervention Intervention HEALTH CARE ATTORNEY enters room to meet with patient, present in room is patient's spouse. Patient gives consent for spouse to be present. Patient endorses her hx of depression, life stress and that she drank without eating yesterday. Patient states she made some statements to her brother and that she believes were misinterpreted while she was under the influence of alcohol. Patient denies SI currently, last night or ever in her life , patient denies plans or intent. When asked about her statement about the end of the road and jumping into the water, patient states she was literally at the end of a road and that she just wanted to put her feet in the water. Patient endorses she has psychiatrist and has had a therapist in the past, patient endorses interest in seeking therapy again. Patient's states he can benzene worker and be present with patient to ensure her safety. It is the opinion of this HEALTH CARE ATTORNEY that patient is safe to d/c to home with spouse upon medical clearance. HEALTH CARE ATTORNEY provides patient with list of MH providers that accept her insurance, list of crisis contacts and encourages patient to f/u with psychiatrist, establish care with therapist and f/u with PCP as well. HEALTH CARE ATTORNEY reviews patient with ED provider Dr. Harvey who indicates agreement and understanding. Plan RA Plan Patient to d/c to home upon medical clearance with spouse, patient to f/u with psychiatrist and PCP and patient to seek established care with mental health therapist. Lydia Sawyer, [employer]
== END 2023-10-13 12:25 | disposition home or self-care (01) ==
PROVIDERS: Emergency Provider Emergency Medicine; PCP Nurse Practitioner Family
DX: R45.851 Suicidal ideations (principal); F10.129 Alcohol abuse with intoxication, unspecified
CPT/HCPCS: 99282; 99284